=== PATIENT | male | born 1960 | race Caucasian/White ===

== ENCOUNTER 2016-05-19 09:13 | Outpatient (CLI) | payer OTHER ==
[~2016-05-19 09:13] MED LIST: ALEVE220 MG PO; BACK & BODY EXT1 TAB; LITHIUM CARBON300 M1 PO; [UNRECOGNIZED DRUG - OTHER]
--- NOTE | 2016-05-19 11:39 | DIAGNOSTIC IMAGING REPORT ---
PROCEDURE: MR BRAIN W/WO CONTRAST INDICATION: BASAL CELL CARCINOMA OF HEAD TECHNIQUE: Multiplanar multisequence MRI imaging of the brain without contrast. Post administration of 20 CC ProHance gadolinium based IV contrast, three plane T1 fat sat sequences were obtained. COMPARISON: None available FINDINGS: Large left parietal ulceration of the scalp measuring 4-5 cm in diameter. Nodular tumor is seen just to the right of the midline measuring 15 mm in diameter. Additional tumor nodularity is seen along the superior margin and laterally on the left and this measures 12 mm in size. The adjacent skull appears intact without evidence of invasion. The midline structures are normally formed. The ventricular system is normal in size. Basal cisterns are patent. Flow voids in the major intracranial vessels are normal. No vascular malformations seen post contrast. Signal throughout the youngblood and white matter is normal. No restricted diffusion to suggest acute ischemia. No evidence of acute or chronic intraparenchymal or extra-axial hemorrhage. No mass, mass effect, or midline shift. No suspicious enhancement. Normal signal in the visible bones. The sinuses are normally aerated. orbits are normal. IMPRESSION: 1. Normal MRI of the brain and skull. 2. 7 cm ulcerating basal cell tumor involving the left parietal scalp.
[2016-07-09] MEDS ORDERED: LITHIUM CARBON300 MG PO (12:48)
== END 2016-05-19 23:00 ==
LOC: MRI SRH 09:13
DX: D48.5 Neoplasm of uncertain behavior of skin (principal)

== ENCOUNTER 2016-05-28 06:37 | Day surgery (SDC) | payer OTHER ==
[2016-05-28] MEDS ORDERED: NORCO1 TA1 PO (11:30)
--- NOTE | 2016-05-28 11:33 | Provider's Discharge Care Plan ---
Problem, Goal, Plan Problem List 1. Skin cancer Instructions: Stop smoking, set up VAC and wound care elevate head of bed
--- NOTE | 2016-05-28 11:33 | Provider's Discharge Care Plan ---
Problem, Goal, Plan Problem List 1. Skin cancer Instructions: Stop smoking, set up VAC and wound care elevate head of bed
--- NOTE | 2016-05-28 13:10 | OPERATIVE REPORT ---
DATE OF SURGERY: 05/28/2016 SURGEON: Garry Wilcox MD PREOPERATIVE DIAGNOSIS: 1. Basal cell carcinoma of the scalp POSTOPERATIVE DIAGNOSIS: 1. Basal cell carcinoma of the scalp PROCEDURE PERFORMED: 1. Excision of basal cell carcinoma, scalp (6 x 10.5 cm) with placement of extracellular matrix tissue graft. SURGICAL TECHNIQUE: The patient was taken to the main operating room, where a general anesthetic was administered and the patient prepped and draped in the usual sterile fashion. The hair was clippered back for about 2 inches on all sides to allow for future placement of a VAC dressing. The edges of the tumor were marked with a marking pen as well as an additional 1-2 mm rim of normal tissue all around it. This was all anesthetized with 0.5% Marcaine with epinephrine. Sufficient time was allowed for the epinephrine to take hold. The edges were incised and the incision carried out underneath the galea and superficial to the periosteum of the skull which did which did not seem to be involved with the tumor. The entire tumor was excised as well as the surrounding rim of tissue. This was oriented on a sterile piece of paper and carefully labeled to show all the margins. The entire specimen in its oriented condition was taken to the frozen section room. The pathologist performed elaborate frozen sections around the peripheral margins which were all clean. He also took product support sales representative sections of the deep margin and the tumor did not seem to penetrate past the deep margin of the removed specimen at any location. The underlying tissue bed still had periosteum and was well vascularized. There are no areas of exposed cortical bone. The final wound was 6 x 10.5 cm. A 1000 mg MatriStem powder was mixed with sterile saline into a thick paste and was applied into the depths of the wound throughout the wound, especially in the corners. A piece of thick sheet MatriStem graft was oriented in the wound and sutured around its edges using interrupted 4-0 Vicryl sutures and trimmed to size. A single layer of Adaptic gauze was placed and covered with hydrating gel, following which an absorptive dressing was placed over the top as well as a Kerlix dressing to hold everything in place. The patient left in stable condition and no intraoperative complications were encountered. It is anticipated that this patient will be switched over to a negative pressure VAC dressing within a day or 2. The original intent was to place a VAC at this point , however authorization cannot be obtained until clean cancer margins were completed, which was done at this point.
[2016-07-09] MEDS ORDERED: LITHIUM CARBON300 MG PO (12:48)
== END 2016-05-28 13:55 | disposition home or self-care (01) ==
LOC: OR SRH 06:37
PROVIDERS: Surgery
PROC: 0JB00ZZ Excision of Scalp Subcutaneous Tissue and Fascia, Open Approach (ICD-10-PCS; principal; 2016-05-28 08:30)
DX: C44.41 Basal cell carcinoma of skin of scalp and neck (principal)
CPT/HCPCS: 29229; 50004; 60001; 70002; 80102; 81271; 81381; 84038

== ENCOUNTER 2016-07-13 08:47 | Day surgery (SDC) | payer OTHER ==
--- NOTE | 2016-07-09 19:16 | CONSULTATION REPORT ---
DATE OF CONSULTATION: 07/07/2016 CHIEF COMPLAINT: 1. Open wound of scalp HISTORY OF PRESENT ILLNESS: The patient is a 55-year-old man who presented on with a gradually enlarging ulcerated wound on his scalp. This scalp wound started in 1996 and he was treated at times in the past including 8 visits to the [facility] care center in 2001. Dr. Austin performed a biopsy recently demonstrating this gradually enlarging ulcer to be a basal cell carcinoma. The patient relates no other symptoms other than drainage from this area and has been wearing a cap for many years to conceal the large lesion. MEDICAL/SURGICAL HISTORY: Past medical history: Includes anxiety, bipolar disorder, and arthritis. Prior surgeries: Anterior cruciate ligament repair of the knee in 1994. MEDICATIONS: 1. Affton 300 mg p.o. b.i.d. ALLERGIES: 1. NONE TO MEDICATIONS. SOCIAL HISTORY: The patient is . He does not work. He is not using alcohol. He does smoke. FAMILY HISTORY: Unknown. The patient was adopted at . REVIEW OF SYSTEMS: A multipoint review of systems was pertinent for a 15-pound weight loss back in May. He has otherwise been stable weight low. He reports no head and neck problems. No neck pain or stiffness, lumps in the neck, visual difficulties , photophobia or eye pain. No ENT difficulties, sore throat, bleeding gums. No mouth sores. He reports no breast or chest wall complaints. No chest pain or palpitations. No shortness of breath, though he has occasional brownish sputum, but no hemoptysis. Reports normal appetite. No abdominal pain, diarrhea, constipation, or hematemesis. He has had no urinary difficulties. He reports occasional polydipsia, but no excessive sweating. He has muscle aches involving some of his lower extremity joints. He has occasional dizziness, but no true vertigo and some motor and sensory disturbances in his left hip and left leg. Psychologically, he reports he does have anxiety, depression and some sleep disturbance. He reports no additional skin lesions, other than the one being addressed. PHYSICAL EXAMINATION: GENERAL: The patient is alert and cooperative. HEENT: His ears and nose demonstrate no gross external lesions. Eyes are equal and without icterus. The scalp demonstrates a sizable surgical wound, which is now filled with solid red granulation tissue compared to the postoperative appearance of a large wound. Note, this has been treated with negative pressure therapy and extracellular matrix application. NECK: Without palpable mass or thyromegaly. CHEST: Clear without wheeze or rales. HEART: Regular, without murmur or gallop. ABDOMEN: Reveals no localized pain, organomegaly. EXTREMITIES: Symmetric and appears to ambulate without restriction. IMPRESSION: 1. Open surgical wound of scalp. PLAN: The patient will undergo a split-thickness skin graft to this area. I made the patient aware of nature of this operation, as well as risks such as infection, bleeding, scarring and failure of the graft to take. He understands he will have to avoid injury to this area and protect the area after he sustains the skin graft procedure. He would like to proceed as described.
[~2016-07-13] VITALS: Ht 182.9 cm; Wt 124.8 kg
[~2016-07-13 08:47] MED LIST changes: +LITHIUM CARBON300 MG PO; +NORCO1 TA1 PO
--- NOTE | 2016-07-13 13:19 | Provider's Discharge Care Plan ---
Problem, Goal, Plan Problem List 1. Skin cancer 2. Status post skin graft
--- NOTE | 2016-07-13 13:19 | Provider's Discharge Care Plan ---
Problem, Goal, Plan Problem List 1. Skin cancer 2. Status post skin graft
[2016-07-13 14:30] VITALS: BP 120/62
--- NOTE | 2016-07-13 14:44 | OPERATIVE REPORT ---
DATE OF SURGERY: 07/13/2016 SURGEON: Garry Wilcox MD PREOPERATIVE DIAGNOSIS: 1. Open wound of scalp, 5 x 7 cm POSTOPERATIVE DIAGNOSIS: 1. Open wound of scalp, 5 x 7 cm PROCEDURE PERFORMED: 1. Split-thickness skin graft to scalp ANESTHESIA: General. INDICATIONS: The patient is a 55-year-old man with a large skin cancer removed from his scalp. He is undergoing completion closure after a period of VAC and extracellular matrix grafting. SURGICAL TECHNIQUE: The patient was taken to the operating room, where a general anesthetic was administered and the patient was placed in the left lateral decubitus position. The VAC apparatus was removed, and the wound was measured at a maximum of 5 x 7 cm. An appropriate-sized section of skin was harvested from the right thigh using sterile technique, using an air-driven dermatome set at 0.16. The donor site was infiltrated preoperatively with 1% Xylocaine with epinephrine and was hemostatic. A membrane dressing was applied to the donor site. The recipient site was debrided using a 15 scalpel blade to fresh bleeding points, and pressure was held until hemostasis was complete. All fibrin was removed and the underlying bed looked healthy and well vascularized. The skin graft was applied and secured with skin darnell at the edges, following which a single layer of Adaptic gauze was placed over the skin graft. The wound VAC system was replaced using a white sponge in this case, with membrane dressing to securely fasten the graft to the patient's scalp. The patient left in good condition, and no intraoperative complications were encountered.
== END 2016-07-13 14:57 | disposition home or self-care (01) ==
LOC: SCU SRH 08:47 → OR SRH 08:47 → SCU SRH 08:50 → OR SRH 11:00
PROVIDERS: Surgery
PROC: 0HR0X74 Replacement of Scalp Skin with Autologous Tissue Substitute, Partial Thickness, External Approach (ICD-10-PCS; principal; 2016-07-13 11:00)
PROC: 0HBHXZZ Excision of Right Upper Leg Skin, External Approach (ICD-10-PCS; principal; 2016-07-13 11:00)
DX: Z48.1 Encounter for planned postprocedural wound closure (principal); Z85.828 Personal history of other malignant neoplasm of skin; Z72.0 Tobacco use
CPT/HCPCS: 29229; 29240; 50004; 60001; 70002; 80124; 80575; 81797; 82210; 83308; 83774